=== PATIENT | male | born 1965 | race Caucasian/White ===

== ENCOUNTER 2016-11-15 18:47 | Emergency (ER) | payer OTHER ==
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
[2016-11-15 20:13] VITALS: TEMP 98.4; BMI 27.6
[2016-11-15] MEDS ORDERED: OXYCODONE HCL 5 MG TABLET PO ONE (21:23)
[2016-11-15] MEDS ORDERED: DIAZEPAM 5 MG TAB PO ONE (21:23)
[2016-11-15] MEDS ORDERED: PREDNISONE 20 MG TAB PO ONE (21:23)
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
[2016-11-15 22:07] VITALS: BP 132/84; PULSE 76
== END 2016-11-15 22:05 | disposition home or self-care (01) ==
LOC: ED 18:47 → EDMC 22:05
DX: S13.9XXA Sprain of joints and ligaments of unspecified parts of neck, initial encounter (principal); V49.50XA Passenger injured in collision with unspecified motor vehicles in traffic accident, initial encounter; Y93.9 Activity, unspecified; Y92.410 Unspecified street and highway as the place of occurrence of the external cause
CPT/HCPCS: 72050; 99282; J3490